=== PATIENT | female | born 2000 | race Caucasian/White ===

== ENCOUNTER 2018-10-17 22:23 | Emergency (ER) | payer OTHER ==
[2018-10-17 23:25] LABS: BASO % 0.7 % (0-2.0); EOS % 6.1 % (0-4.5); HEMATOCRIT 34.6 % (32.4-45.2); LYMPH % 31.1 % (8-40); MCH 31.5 pg (25.7-33.7); MCHC 34.8 g/dl (32.0-36.0); MEAN CELL VOLUME 90.3 fl (80-96); MEAN PLT VOLUME 8.4 fl (7.5-11.1); MONO % 7.5 % (3.8-10.2); NEUT % 54.6 % (42.8-82.8); PLATELET COUNT 284 K/MM3 (134-434); RBC 3.83 M/mm3 (3.60-5.2); RDW 12.7 % (11.6-15.6); WHITE BLOOD COUNT 6.9 K/mm3 (4.0-10.8)
[2018-10-17 23:37] LABS: ALBUMIN 4.4 g/dl (3.4-5.0); BILIRUBIN,TOTAL 0.4 mg/dl (0.2-1); CREATININE 0.7 mg/dl (0.55-1.3); POTASSIUM 4.3 mmol/L (3.5-5.1); TOT PROT 7.2 g/dl (6.4-8.2)
[2018-10-17 23:40] VITALS: BP 100/58; PULSE 84; TEMP 97.8; BMI 27.0
[2018-10-18] MEDS ORDERED: IBUPROFEN 600 MG TABLET (FP) PO ONE ×2 (01:33→01:34)
--- NOTE | 2018-10-18 02:48 | PDOC ---
Documentation entered by Lorie Kraft SCRIBE, acting as scribe for Frances Quach MD. Frances Quach MD: This documentation has been prepared by the evangelinaibeSwapnil Lincy, SCRIBE, under my direction and personally reviewed by me in its entirety. I confirm that the documentation accurately reflects all work, treatment, procedures, and medical decision making performed by me. History of Present Illness - General Chief Complaint: Pain, Acute Stated Complaint: ABD PAIN Time Seen by Provider: 10/17/18 23:07 History Source: Patient Exam Limitations: No Limitations - History of Present Illness Initial Comments: 10/17/18 23:36 The patient is a 18-year-old female with a past medical history significant for anemia presents to the emergency department with right lower quadrant pain. The patient presents with several days of RLQ pain that radiates to the lower back, with a gradual increase in severity. The patient reports the pain is aggravated with standing up, and mild relief is noted with Tylenol. The patient reports associated symptoms of nausea and a decrease in appetite. Denies vomiting, diarrhea, or constipation. The patient reports she was recently treated for Chlamydia (with a follow-up appointment on the ) LMP: October 05 regular. Social history: College student in [place]. Past History - Past Medical History Allergies/Adverse Reactions: Allergies Allergy/AdvReac Type Severity Reaction Status Date / Time No Known Allergies Allergy Verified 10/18/13 00:48 Home Medications: Ambulatory Orders Acetaminophen [Pain Reliever] 500 mg PO ONCE PRN 10/17/18 COPD: No - Immunization History Immunization Up to Date: Yes - Suicide/Smoking/Psychosocial Hx Smoking History: Never smoked Review of Systems - Review of Systems Able to Perform ROS?: Yes Comments:: 10/17/18 23:36 Constitutional - Pt denies Fever, Chills, weakness, HEENT: denies vision changes, sore throat Respiratory: Denies cough, sob, hemoptysis Cardiac: denies chest pain, palpitations, lightheadedness, leg swelling Abd/GI: +right lower quadrant pain and nausea. Denies vomiting, blood per rectum , melena, diarrhea : denies dysuria, frequency, discharge Musculoskeletal - denies back pain, joint swelling skin - denies bruising, erythema, rash neurological: denies headache, numbness, focal weakness, tingling, ataxia, weakness hematologic: denies anemia, easy bruising, easy bleeding *Physical Exam - Vital Signs Last Vital Signs Temp Pulse Resp BP Pulse Ox 97.8 F 84 18 100/58 L 100 10/17/18 22:24 10/17/18 22:24 10/17/18 22:24 10/17/18 22:24 10/17/18 22:24 - Physical Exam Comments: 10/17/18 23:48 GENERAL: The patient is awake, alert, and fully oriented, in no acute distress. LUNGS: Breath sounds equal, clear to auscultation bilaterally. No wheeze/ crackles. HEART: Regular rate and rhythm, normal S1 and S2 without murmur or rub. ABDOMEN: +moderate tenderness of the RLQ just cephalad of the inguinal ligament , no masses palpated. No involuntary guarding, rebound tenderness. ED Treatment Course - LABORATORY CBC & Chemistry Diagram: 10/17/18 23:15 10/17/18 23:15 - ADDITIONAL ORDERS Additional order review: Laboratory Results 10/17/18 10/17/18 22:30 22:30 Urine Color Yellow Urine Appearance Clear Urine pH 8.5 H Urine Protein Negative Urine Glucose (UA) Negative Urine Ketones Negative Urine Blood Negative Urine Nitrite Negative Urine Bilirubin Negative Urine Urobilinogen 0.2 Ur Leukocyte Esterase Negative Urine HCG, Qual Negative - RADIOLOGY Radiology Studies Ordered: Category Date Time Status ABDOMEN & PELVIS CT WITH CONTR [CT] Stat CT Scan 10/17/18 23:31 Taken Progress Note - Progress Note Progress Note: As noted above, this 18-year-old female without significant past medical history (except for recent treatment for chlamydia) presents with 1 day history of right lower quadrant abdominal pain. No vaginal bleeding/discharge reported. She has no nausea/vomiting/fever. Exam as noted with point tenderness of the right lower quadrant just cephalad of the mid- inguinal ligament. No masses/rebound/involuntary guarding present. Abdominal/pelvic CT with IV contrast performed with preliminary interpretation by Imaging supply person: Small amount of free pelvic fluid with evidence of 2 cm collapsing left ovarian cyst. Appendix is visualized and is normal Results discussed with the patient. When asked if she had any history of left sided abdominal pain, she commented that she did have brief pain in the left lower quadrant earlier. It is surmised that the current right lower quadrant pain may be secondary to the free pelvic fluid. In any case, she has no other pathology was appendix appearing totally normal. Therefore, the patient can take nonsteroidal anti-inflammatory/Tylenol as needed for pain. Motrin 600 mg will be given now. She can continue to take NSAIDs or Tylenol as needed for pain and warm compresses can be used on the lower abdomen. Patient is scheduled to return to [place] where she attends college within the next 48 hours. When she returns, she should follow-up with the health care practitioner who treated her chlamydia for reevaluation. *DC/Admit/Observation/Transfer Diagnosis at time of Disposition: Ruptured ovarian cyst - Discharge Dispostion Disposition: HOME Condition at time of disposition: Stable - Referrals - Patient Instructions Printed Discharge Instructions: DI for Ovarian Cyst Additional Instructions: Motrin 600 mg up to 3 times a day Warm compresses to lower abdomen as needed Return to ER if you have severe pain/vomiting/fever Follow-up with your doctor when you return home - Post Discharge Activity
== END 2018-10-18 01:38 | disposition home or self-care (01) ==
LOC: FER 22:23
DX: N83.209 Unspecified ovarian cyst, unspecified side (principal)
CPT/HCPCS: 36415; 74177-TC; 80053; 81003; 84703; 85025; 99283-25